=== PATIENT | male | born 1965 | race Caucasian/White ===

== ENCOUNTER → 2016-11-25 | Outpatient (CLI) | payer BC ==
[~2016-11-25] MED LIST: CLC100 PO; LISI-725 PO; PRLSR20 PO; WARF2TAB PO
== END | disposition home or self-care (01) ==
LOC: C.RDSM 10:50
PROVIDERS: ATTEND Physical Medicine & Rehabilitation Sports Medicine
DX: M25.559 Pain in unspecified hip (principal); Z96.651 Presence of right artificial knee joint

== ENCOUNTER → 2017-07-14 | Outpatient (CLI) | payer BC ==
--- NOTE | 2017-07-14 10:42 | DIAGNOSTIC IMAGING REPORT ---
RIGHT KNEE 3 VIEWS; LEFT KNEE 2 VIEWS CLINICAL HISTORY: Status post right knee arthroplasty. FINDINGS: An AP standing view of both knees, a crosstable lateral view of the right knee, and a tunnel view of both knees were obtained. Comparison is made to study dated 11/25/2016. The skeletal structures are osteopenic. Right knee: A right knee arthroplasty is in near-anatomic alignment. 2 cortical lag screws are present in the distal femoral metaphysis. No periprosthetic lucency is identified. There has been undersurface remodeling of the patella. There is a minimally distracted avulsion fracture along the superior margin of the patella, new from 11/25/2016. No additional fracture is seen. There is a small joint effusion. Mild soft tissue swelling is suggested around the knee. Left knee: No fracture is seen. There is advanced arthritic change in the left knee, with near complete loss of the joint space in the medial compartment where there is bony sclerosis and subchondral cyst formation. There are large marginal osteophytes. Chondrocalcinosis is identified in the lateral compartment. IMPRESSION: 1. A right knee arthroplasty is in near-anatomic alignment. No periprosthetic lucency is identified. 2. There is a minimally distracted and age indeterminant avulsion fracture involving the superior aspect of the right patella, new from 11/25/2016. 3. No additional acute bony abnormality is identified. 4. A joint effusion is present in the right knee and there is soft tissue edema. 5. Advanced arthritic change and chondrocalcinosis is seen in the left knee. Electronically signed by: Cal Campbell M.D. 07/14/2017 10:41 AM Dictated Date/Time: 07/14/2017 10:37 AM
== END | disposition home or self-care (01) ==
LOC: C.RDSM 14:39
PROVIDERS: ATTEND Physician Assistant
DX: Z96.651 Presence of right artificial knee joint (principal); S82.091A Other fracture of right patella, initial encounter for closed fracture; M25.461 Effusion, right knee; M11.162 Familial chondrocalcinosis, left knee; X58.XXXA Exposure to other specified factors, initial encounter